=== PATIENT | female | born 1945 | race Hispanic/Latino ===

== ENCOUNTER 2019-12-26 11:33 | Outpatient (CLI) | payer MEDICARE ==
--- NOTE | 2019-12-26 13:40 | RAD ---
RIGHT FOOT 3 VIEWS: HISTORY: Right foot pain more in the heel. FINDINGS/IMPRESSION: No fracture, dislocation, or bony destruction is identified. There is a plantar calcaneal spur. The re is ossification of about 2.5 cm in the plantar aponeurosis anterior to the plantar calcaneal spur. POS: [facility]
== END 2019-12-26 11:34 | disposition home or self-care (01) ==
LOC: BICRAD 11:33
PROVIDERS: ATTEND Nurse Practitioner Family
DX: M79.671 Pain in right foot (principal); M77.31 Calcaneal spur, right foot